=== PATIENT | female | born 1975 | race Caucasian/White ===

== ENCOUNTER 2019-07-07 18:36 | Emergency (ER) | payer OTHER ==
[~2019-07-07] VITALS: Ht 160 cm; Wt 94.6 kg
[2019-07-07 18:41] VITALS: BP 107/69
--- NOTE | 2019-07-07 19:03 | NUR ---
PATIENT PRESENTS TO ED WITH RIGHT FACIAL SWELLING SINCE 2AM. PT DENIES ANY INJURY OR TRAUMA. PT STATES THAT SHE ONLY EXPERIENCES PAIN WHEN PRESSING ON THE AREA. -FEVER, -DIFFICULTY SWALLOWING, -. SKIN IS PINK/WARM/DRY; AAOX4 WITH EVEN AND STEADY GAIT; LUNGS CLEAR BL; HR EVEN AND REGULAR; PATIENT STATES PAIN OF 0/10 AT THIS TIME; VSS; PATIENT POSITIONED FOR COMFORT; HOB ELEVATED; BEDRAILS UP X2; BED DOWN. ER MD MADE AWARE OF PT STATUS. NO PMH. NKA.
[2019-07-07 19:04] VITALS: BP 107/69
--- NOTE | 2019-07-07 19:13 | NUR ---
REPORT GIVEN TO ROSA M. ALL CARE TRANSFERRED AT THIS TIME.
--- NOTE | 2019-07-07 19:14 | NUR ---
RECEIVED REPORT FROM NOMI THACKER. ASSUMED CARE AT THIS TIME.
--- NOTE | 2019-07-07 19:39 | NUR ---
DR. GARCIA AT BEDSIDE.
--- NOTE | 2019-07-07 20:17 | NUR ---
Patient discharged with v/s stable. Written and verbal after care instructions given and explained. Patient alert, oriented and verbalized understanding of instructions. Ambulatory with steady gait. All questions addressed prior to discharge. ID band removed. Patient advised to follow up with PMD. Rx of penicillin given. Patient educated on indication of medication including possible reaction and side effects. Opportunity to ask questions provided and answered.
== END 2019-07-07 20:17 | disposition home or self-care (01) ==
LOC: MED 18:36
DX: K04.7 Periapical abscess without sinus (principal)
CPT/HCPCS: 99283